=== PATIENT | male | born 1965 | race Caucasian/White ===

== ENCOUNTER → 2020-07-29 | Outpatient (CLI) | payer OTHER ==
--- NOTE | 2020-07-29 12:49 | RAD ---
EXAM: Chest, 2 views. HISTORY: COPD. COMPARISON: None. FINDINGS: 2 views of the chest are obtained. There is hyperinflation and hyperlucency involving both lungs due to emphysema. There is no consolidation, pleural effusion or pneumothorax. The heart is nor mal in size. IMPRESSION: Pulmonary emphysema. No acute pulmonary finding. Electronically signed by: Marta Wagner MD (07/29/2020 12:46 PM) [id number]
== END ==
LOC: PF 09:53
PROVIDERS: ATTEND Surgery
DX: J43.9 Emphysema, unspecified (principal)
CPT/HCPCS: 71046; 94060; 94640; 94664